=== PATIENT | male | born 1965 | race Caucasian/White ===

== ENCOUNTER → 2019-01-07 | Outpatient (CLI) | payer OTHER ==
--- NOTE | 2019-01-07 15:52 | Diagnostic Imaging Report ---
PROCEDURE: CT lumbar spine without contrast. TECHNIQUE: Multiple contiguous axial images were obtained through the lumbar spine without the use of intravenous contrast. Sagittal and coronal reformations were then performed. Auto Exposure Controls were utilized during the CT exam to meet ALARA standards for radiation dose reduction. INDICATION: Low back pain, leg pain, symptoms worsening over the past year. FINDINGS: Lumbar statures are normal. The alignment is anatomic. 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 Pedicles and pars at the remaining levels appeared intact. No acute fracture identified. No paravertebral mass, hemorrhage or fluid collection. There are degenerative changes of the discs, endplates and posterior elements throughout the lumbar spine. L1-L2: Osteophyte disc material is anteriorly directed with no canal, foraminal or recess stenosis. L2-L3: Calcified bulging disc material, endplate osteophytes, facet arthrosis and ligamentous thickening result in severe central canal stenosis with right greater than left lateral recess narrowing and only mild degrees of biforaminal stenosis. L3-L4: Bulging calcified disc material, endplate osteophytes and facet arthrosis with ligamentous thickening result in severe canal stenosis with substantial degrees of bilateral lateral recess impingement with mild right and moderate left neural foraminal stenoses. L4-L5: Bulging disc material and posterior element hypertrophy result in mild canal stenosis. There is borderline mild biforaminal narrowing. L5-S1: Endplate osteophytes efface the ventral fat but no substantial degree of canal stenosis. There is however at least moderate severity bilateral neural foraminal narrowing on an osseous and disc basis. 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 No acute lumbar fracture. Multifactorial degenerative changes throughout the lumbar spine result in substantial degrees of multilevel spinal stenoses involving the central canal, the neural foramen and the lateral recesses listed level by level above. Dictated by: Dictated on workstation # [id number]
== END ==
LOC: RAD 14:27
PROVIDERS: ATTEND Physician Assistant
DX: M47.816 Spondylosis without myelopathy or radiculopathy, lumbar region (principal); M48.07 Spinal stenosis, lumbosacral region; M25.78 Osteophyte, vertebrae; M51.26 Other intervertebral disc displacement, lumbar region
CPT/HCPCS: 72131

== ENCOUNTER → 2019-02-02 | Outpatient (CLI) | payer OTHER ==
--- NOTE | 2019-02-02 08:55 | Diagnostic Imaging Report ---
PROCEDURE: US Hepatic (Liver). TECHNIQUE: Multiple real-time grayscale images were obtained over the right upper quadrant in various projections. INDICATION: Elevated liver enzymes. The liver is enlarged at 21.1 cm. There is diffuse increased echogenicity throughout the liver consistent with hepatic steatosis. No discrete liver mass is identified. The portal vein is patent and shows normal direction of flow. Gallbladder is without stones or sludge. No wall thickening or biliary ductal dilatation is seen. The pancreas was obscured by bowel gas. The right kidney is without evidence of calculi or hydronephrosis. There is no ascites. IMPRESSION: 1. Hepatomegaly and hepatic steatosis. 2. No evidence of cholelithiasis or acute cholecystitis. Dictated by: Dictated on workstation # [id number]
== END ==
LOC: RAD 07:31
PROVIDERS: ATTEND Family Medicine
DX: K76.0 Fatty (change of) liver, not elsewhere classified (principal)
CPT/HCPCS: 76705

== ENCOUNTER 2019-02-15 05:35 | Outpatient (CLI) | payer OTHER ==
[~2019-02-15] VITALS: Ht 167 cm; Wt 102.2 kg
[2019-02-15] MEDS ORDERED: LISI1TAB8 PO (11:53)
[2019-02-15] MEDS ORDERED: DULA1.5P2 SQ (11:53)
[2019-02-15] MEDS ORDERED: ATOR80TA76 PO (11:53)
[2019-02-15] MEDS ORDERED: DAPA5TAB PO (11:53)
== END 2019-02-15 11:55 | disposition home or self-care (01) ==
LOC: PREOP 05:35
PROVIDERS: ATTEND Surgery
DX: Z01.818 Encounter for other preprocedural examination (principal)